=== PATIENT | female | born 2000 | race Caucasian/White ===

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

== ENCOUNTER 2024-03-09 07:00 | Outpatient (CLI) | payer OTHER, SELFPAY ==
--- NOTE | 2024-03-09 | USR_ITS ---
PROCEDURE INFORMATION: Exam: US Plus Detailed Evaluation, First Gestation, Transabdominal Exam date and time: 03/09/2024 2:40 PM Age: 23 years old Clinical indication: Screening exam; Routine US, uterus; Additional info: Gestation period 14 weeks TECHNIQUE: Imaging protocol: Real time transabdominal uterus, including and maternal evaluation plus detailed anatomic examination with image documentation. First gestation. COMPARISON: No relevant prior studies available. FINDINGS: Gestation: Single live intrauterine gestation. heart rate: heart rate is 156 bpm. presentation and position: Breech presentation. Placenta: Posterior placenta without obvious previa. Amniotic fluid (Qualitative): Qualitatively, there is a normal amount of amniotic fluid. ANATOMY: brain parenchyma: Grossly unremarkable corpus callosum: Grossly unremarkable. midline falx: Grossly unremarkable. septum pellucidum: Grossly unremarkable. cerebellum: Normal lateral ventricles: Normal choroid plexus: Grossly unremarkable. cisterna magna: Normal face: Not evaluated. neck: Not evaluated lungs: Not evaluated heart four-chamber view, heart size and position: Identified.. heart three-vessel trachea view: Not done heart three-vessel view: Not done heart right ventricular outflow tract: Not evaluated heart left ventricular outflow tract: Not evaluated aortic arch: Not evaluated superior and inferior vena cava: Not evaluated ribs: Not evaluated diaphragm: Not evaluated liver: Not evaluated gallbladder: Not evaluated spleen: Not evaluated adrenal glands: Not evaluated kidneys: Normal renal arteries: Not evaluated stomach: Normal. urinary bladder: Normal spine: Normal. Umbilical cord and insertion: Normal. abdominal wall: Not evaluated upper limbs: Not evaluated lower limbs: Not evaluated external genitalia: Not evaluated BIOMETRY: Gestational age (AUA): Composite ultrasound age and gestational age by menstrual dating are both 20 weeks and 1 day which gives an estimated date of delivery of July 26, 2024. The biparietal diameter estimates the gestational age to be 19 weeks and 6 days. The head circumference estimates the gestational age to be 19 weeks and 5 days. The abdominal circumference estimates the gestational age to be 20 weeks and 4 days. The femur length estimate gestational age to be 20 weeks and 1 day. Estimated due date (AUA): July 26, 2024 Estimated weight: Estimated weight is 347 g or 12 oz which is the 55.5 percentile. Biparietal diameter (BPD): The biparietal diameter of 4.6 cm is the 39.5 percentile. Head circumference (HC): 17.2 cm which is the 25.4 percentile. Abdominal circumference (AC): 15.45 cm which is the 60.9 percentile. Humerus length (HL): Not done Radius length: Not done Femur length (FL): 3.25 cm which is the 41.9 percentile. tibia length: Not done Fibula length: Not done biometric ratios: The CI ratio is 73%. The femur length to abdominal circumference ratio is 21%. The head circumference to abdominal circumference ratio is 1.11. The femur length to biparietal diameter ratio is 71%. The femur length to head circumference ratio is 0.19. MATERNAL ANATOMY: Uterus: Otherwise, unremarkable. Cervix: Most of the maternal cervix is obscured by shadowing. The visualized cervix is grossly unremarkable. Right ovary/adnexa: Not evaluated. Left ovary/adnexa: Not evaluated. Intraperitoneal space: No intraperitoneal free fluid identified. Notes: Limited survey as above. US/US OB <= 14 weeks fetus [id number] IMPRESSION: 1. Negative limited survey as above. 2. Most of the maternal cervix is obscured by shadowing. The visualized cervix is grossly unremarkable. 3. Otherwise, unremarkable obstetrical ultrasound.
== END 2024-03-09 07:01 | disposition home or self-care (01) ==
LOC: RADOUTREAD 03-10 06:50
PROVIDERS: Visit Provider Family Medicine
DX: Z36.89 Encounter for other specified antenatal screening (principal)